=== PATIENT | male | born 1950 | race Caucasian/White ===

== ENCOUNTER 2022-12-18 04:24 | Day surgery (SDC) | payer OTHER ==
[2022-12-14 12:33] VITALS: BMI 27.2
[2022-12-18] MEDS ORDERED: MIDAZOLAM HCL 2 MG/2 ML SINGLE DOSE VIAL ONE (18:35)
[2022-12-18] MEDS ORDERED: ONDANSETRON 4 MG/2 ML VIAL ONE (18:35)
[2022-12-18 19:52] VITALS: RESP 20; TEMP 97.8
[2022-12-18 20:00] VITALS: BP 115/67; PULSE 67
== END 2022-12-18 19:50 | disposition home or self-care (01) ==
LOC: JASU-SURG 04:24
PROVIDERS: ATTEND Urology
PROC: 0TF4XZZ Fragmentation in Left Kidney Pelvis, External Approach (ICD-10-PCS; principal; 2022-12-18 17:30)
DX: N20.0 Calculus of kidney (principal)